=== PATIENT | male | born 1955 | race Caucasian/White ===

== ENCOUNTER 2018-12-11 12:33 | Outpatient (CLI) | payer OTHER ==
[~2018-12-11 12:33] MED LIST: LORA0.5T PO; LORA1TAB PO; SERT100T32 PO; SIMV10TA PO; VERA120T8 PO; VERA240T10 PO
[2018-12-11] MEDS ORDERED: GADOBUTROL 10 MMOL/10 ML PFS ONE (14:20)
== END 2018-12-11 23:59 | disposition home or self-care (01) ==
LOC: CFH 12:33
PROVIDERS: ATTEND Family Medicine
DX: M47.812 Spondylosis without myelopathy or radiculopathy, cervical region (principal); H93.12 Tinnitus, left ear; R51 Headache
CPT/HCPCS: 70553; 72141; A9585

== ENCOUNTER → 2020-07-12 | Outpatient (CLI) | payer OTHER ==
[~2020-07-12] MED LIST changes: +REGADENOSON 0.4 MG/5 ML SYRINGE ONE
== END | disposition home or self-care (01) ==
LOC: CFH 08:32
PROVIDERS: ATTEND Registered Nurse
DX: I25.89 Other forms of chronic ischemic heart disease (principal); I65.23 Occlusion and stenosis of bilateral carotid arteries; E78.5 Hyperlipidemia, unspecified; R73.03 Prediabetes; R94.31 Abnormal electrocardiogram [ECG] [EKG]; I10 Essential (primary) hypertension; I44.7 Left bundle-branch block, unspecified
CPT/HCPCS: 78452; 93017; 93880; A9502; J2785

== ENCOUNTER → 2020-07-20 | Outpatient (CLI) | payer OTHER ==
[~2020-07-20] MED LIST changes: +AMLO-150 PO; +ASCO500C2 PO; +CALC-171 PO; +EZET10TA70 PO; +HYDR200T72 PO; +HYDR25TA6 PO; +LISI5TAB7 PO; +MULT-297 PO; +NITR0.4T28 SL; +PREG150C PO; -REGADENOSON 0.4 MG/5 ML SYRINGE ONE; +SERT50TA28 PO; +UBID50TA3 PO
== END | disposition home or self-care (01) ==
LOC: CVU 08:49
PROVIDERS: ATTEND Physician Assistant Medical
DX: I08.0 Rheumatic disorders of both mitral and aortic valves (principal); I10 Essential (primary) hypertension; I44.7 Left bundle-branch block, unspecified
CPT/HCPCS: 93306; 93356

== ENCOUNTER 2020-07-21 16:20 | Inpatient (IN) | payer OTHER ==
[~2020-07-21] VITALS: Ht 177.8 cm; Wt 100.9 kg
[~2020-07-21 16:20] MED LIST changes: -AMLO-150 PO; -ASCO500C2 PO; -CALC-171 PO; -EZET10TA70 PO; -HYDR200T72 PO; -HYDR25TA6 PO; -LISI5TAB7 PO; -MULT-297 PO; -NITR0.4T28 SL; -PREG150C PO; -SERT50TA28 PO; -UBID50TA3 PO
[2020-07-21] MEDS ORDERED: HYDR200T72 PO (17:00)
[2020-07-21] MEDS ORDERED: ASCO500C2 PO (17:00)
[2020-07-21] MEDS ORDERED: LISI5TAB7 PO (17:00)
[2020-07-21] MEDS ORDERED: MULT-297 PO (17:00)
[2020-07-21] MEDS ORDERED: UBID50TA3 PO (17:00)
[2020-07-21] MEDS ORDERED: NITR0.4T28 SL (17:00)
[2020-07-21] MEDS ORDERED: AMLO-150 PO (17:00)
[2020-07-21] MEDS ORDERED: EZET10TA70 PO (17:00)
[2020-07-21] MEDS ORDERED: PREG150C PO (17:00)
[2020-07-21] MEDS ORDERED: CALC-171 PO (17:00)
[2020-07-21] MEDS ORDERED: HYDR25TA6 PO (17:00)
[2020-07-21] MEDS ORDERED: SODIUM CHLORIDE FLUSH 10ML SYR IVF ONE (17:00)
[2020-07-21] MEDS ORDERED: SERT50TA28 PO (17:00)
[2020-07-21] MEDS ORDERED: HEPARIN 25,000 UNITS/250ML PMX 250 ML ONE (17:03)
[2020-07-21] MEDS ORDERED: HEPARIN 5,000 UNITS/ML, 1ML ONE (17:03)
[2020-07-21 17:04] LABS: BASOPHILS % (AUTO) 1 % (0-1); EOSINOPHILS % (AUTO) 1 % (1-7); LYMPHOCYTES % (AUTO) 24 % (22-44); MEAN CORPUSCULAR HGB CONC 34.2 g/dL (33.2-36.2); MEAN PLATELET VOLUME 7.6 fL (7.4-10.4); MONOCYTES % (AUTO) 8 % (2-9); NEUTROPHILS % (AUTO) 66 % (42-75); PLATELET COUNT 260 x10^3/uL (130-400); RED BLOOD COUNT 5.25 x10^6/uL (4.38-5.82); RED CELL DISTRIBUTION WIDTH 14.1 % (9.4-14.8)
--- NOTE | 2020-07-21 17:05 | NUR ---
PT UPRIGHT ON GURNEY AWAKE & COMFORTABLE, RESPONDS APPROP TO STAFF, NAD, COMFORT MEASURES PROVIDED, AT BS, CALL LIGHT WITHIN REACH.
[2020-07-21 17:08] LABS: PROTHROMBIN TIME 10.6 Seconds (9.6-11.5)
[2020-07-21 17:10] LABS: ALANINE AMINOTRANSFERASE 38 U/L (12-78); ALBUMIN 4.7 g/dL (3.4-5.0); ANION GAP 8 mmol/L (5-15); CALCIUM 9.4 mg/dL (8.5-10.1); CHLORIDE 104 mmol/L (98-107)
[2020-07-21 17:14] LABS: ALKALINE PHOSPHATASE 63 U/L (45-117); BILIRUBIN,TOTAL 0.4 mg/dL (0.2-1.0); TOTAL PROTEIN 7.9 g/dL (6.4-8.2); TROPONIN I < 0.015 ng/mL (0.000-0.045)
[2020-07-21 17:16] LABS: MD NO
[2020-07-21] MEDS ORDERED: HEPARIN 25,000 UNITS/250ML PMX 250 ML IV PRN (17:30)
[2020-07-21] MEDS ORDERED: HEPARIN 5,000 UNITS/ML, 1ML IV ONE (17:30)
[2020-07-21] MEDS ORDERED: morphine SULFATE 10 MG/ML, 1ML IVPush PRN (18:00)
[2020-07-21] MEDS ORDERED: NITROGLYCERIN SINGLE TAB 0.4 MG SL PRN (18:00)
[2020-07-21] MEDS ORDERED: BISACODYL 10 MG SUPP PR PRN (18:00)
[2020-07-21] MEDS ORDERED: POLYETHYLENE GLYCOL 17 GM PACKET PO PRN (18:00)
[2020-07-21] MEDS ORDERED: ONDANSETRON ODT 4 MG PO PRN (18:00)
[2020-07-21] MEDS ORDERED: LORazepam 0.5MG TABLET PO PRN (18:00)
--- NOTE | 2020-07-21 18:05 | NUR ---
Pt to be admitted to [facility], room 511-1. Report called to Bridgett.
[2020-07-21 18:31] VITALS: BP 136/83
[2020-07-21] MEDS ORDERED: TEMAZEPAM 15 MG CAPSULE PO PRN (21:00)
[2020-07-21 21:07] VITALS: BP 136/84
[2020-07-21] MEDS: SODIUM CHLORIDE FLUSH 10ML SYR IVF SCH (21:16)
[2020-07-21] MEDS: PREGABALIN 150 MG CAPSULE PO SCH (21:16)
[2020-07-21] MEDS: ACETAMINOPHEN 325 MG TABLET PO PRN (21:21)
[2020-07-22 00:43] VITALS: BP 129/76
[2020-07-22] MEDS: HEPARIN 5,000 UNITS/ML, 1ML IV PRN ×2 (00:51→09:22)
[2020-07-22 05:23] LABS: BASOPHILS % (AUTO) 1 % (0-1); EOSINOPHILS % (AUTO) 2 % (1-7); LYMPHOCYTES % (AUTO) 38 % (22-44); MEAN CORPUSCULAR HGB CONC 34.2 g/dL (33.2-36.2); MEAN PLATELET VOLUME 7.6 fL (7.4-10.4); MONOCYTES % (AUTO) 8 % (2-9); NEUTROPHILS % (AUTO) 52 % (42-75); PLATELET COUNT 229 x10^3/uL (130-400); RED BLOOD COUNT 5.01 x10^6/uL (4.38-5.82); RED CELL DISTRIBUTION WIDTH 13.9 % (9.4-14.8)
[2020-07-22 05:31] LABS: MD NO
[2020-07-22 05:36] LABS: ANION GAP 9 mmol/L (5-15); CALCIUM 9.2 mg/dL (8.5-10.1); CHLORIDE 104 mmol/L (98-107)
[2020-07-22 05:37] LABS: CREATININE 0.91 mg/dL (0.7-1.3)
[2020-07-22] MEDS ORDERED: ASPIRIN 81 MG TABLET EC PO SCH (06:00)
[2020-07-22 07:55] VITALS: BP 131/78
[2020-07-22] MEDS ORDERED: POTASSIUM CHLORIDE 20 MEQ TAB.ER.PRT PO ONE (08:30)
[2020-07-22] MEDS ORDERED: ASCORBIC ACID 500 MG TABLET PO SCH (09:00)
[2020-07-22] MEDS ORDERED: EZETIMIBE 10 MG TABLET PO SCH (09:00)
[2020-07-22] MEDS ORDERED: SERTRALINE 50MG TABLET PO SCH (09:00)
[2020-07-22] MEDS ORDERED: UBIDECARENONE PO SCH (09:00)
[2020-07-22] MEDS ORDERED: LISINOPRIL 40 MG TABLET PO SCH (09:00)
[2020-07-22] MEDS ORDERED: SENNA/DOCUSATE TABLET PO SCH (09:00)
[2020-07-22] MEDS ORDERED: HYDROCHLOROTHIAZIDE 25 MG TABLET PO SCH (09:00)
[2020-07-22] MEDS ORDERED: HYDROXYCHLOROQUINE 200 MG TABLET PO SCH ×2 (09:00→10:00)
[2020-07-22] MEDS ORDERED: MULTIVITAMINS/MINERALS TABLET PO SCH (09:00)
[2020-07-22] MEDS ORDERED: AMLODIPINE 5 MG TABLET PO SCH (09:00)
[2020-07-22] MEDS ORDERED: CALCIUM/VITAMIN D3 250-125 TABLET PO SCH (09:00)
[2020-07-22] MEDS: PREGABALIN 150 MG CAPSULE PO SCH (09:31)
[2020-07-22] MEDS: SODIUM CHLORIDE FLUSH 10ML SYR IVF SCH (09:32)
[2020-07-22] MEDS: ACETAMINOPHEN 325 MG TABLET PO PRN ×2 (10:32→16:58)
[2020-07-22] MEDS ORDERED: SODIUM CHLORIDE 0.9% 1,000 ML IV SCH (11:00)
[2020-07-22 12:22] VITALS: BP 147/82
[2020-07-22] MEDS ORDERED: FENTANYL PF 100 MCG/2ML ONE (13:06)
[2020-07-22] MEDS ORDERED: TICAGRELOR 90 MG TABLET ONE (13:06)
[2020-07-22] MEDS ORDERED: MIDAZOLAM 1 MG/ML, 5ML ONE (13:06)
[2020-07-22] MEDS ORDERED: VERAPAMIL 2.5 MG/ML, 2ML ONE (13:07)
[2020-07-22] MEDS ORDERED: BIVALIRUDIN 250 MG ONE (13:07)
[2020-07-22] MEDS ORDERED: LIDOCAINE 2%, 20ML ONE (13:07)
[2020-07-22] MEDS ORDERED: HEPARIN 1,000 UNITS/ML, 10ML ONE (13:07)
[2020-07-22] MEDS ORDERED: CARV6.25 PO ×2 (15:59)
[2020-07-22] MEDS ORDERED: AMLO-150 PO (16:38)
== END 2020-07-22 17:36 | disposition home or self-care (01) | DRG 287 ==
LOC: ED 17:22 → EDIP 17:23 → ED 17:43 → 5SO 18:01
PROVIDERS: ADMIT Internal Medicine; ATTEND Internal Medicine
PROC: 4A023N7 Measurement of Cardiac Sampling and Pressure, Left Heart, Percutaneous Approach (ICD-10-PCS; principal; 2020-07-22)
PROC: B2111ZZ Fluoroscopy of Multiple Coronary Arteries using Low Osmolar Contrast (ICD-10-PCS; 2020-07-22)
PROC: B2151ZZ Fluoroscopy of Left Heart using Low Osmolar Contrast (ICD-10-PCS; 2020-07-22)
DX: I25.110 Atherosclerotic heart disease of native coronary artery with unstable angina pectoris (principal); D84.9 Immunodeficiency, unspecified; I50.42 Chronic combined systolic (congestive) and diastolic (congestive) heart failure; E11.9 Type 2 diabetes mellitus without complications; E78.2 Mixed hyperlipidemia; F12.90 Cannabis use, unspecified, uncomplicated; H81.09 Meniere's disease, unspecified ear; H91.90 Unspecified hearing loss, unspecified ear; I11.0 Hypertensive heart disease with heart failure; I44.7 Left bundle-branch block, unspecified; M32.9 Systemic lupus erythematosus, unspecified; M79.7 Fibromyalgia; Z82.0 Family history of epilepsy and other diseases of the nervous system; Z82.49 Family history of ischemic heart disease and other diseases of the circulatory system; Z85.46 Personal history of malignant neoplasm of prostate; Z87.891 Personal history of nicotine dependence; Z90.79 Acquired absence of other genital organ(s); Z90.49 Acquired absence of other specified parts of digestive tract; Z90.89 Acquired absence of other organs; Z88.8 Allergy status to other drugs, medicaments and biological substances; Z91.040 Latex allergy status; Z20.822 Contact with and (suspected) exposure to COVID-19; Z79.84 Long term (current) use of oral hypoglycemic drugs
CPT/HCPCS: 36415; 93458; 99285; J3490; 71045; 80048; 80053; 84484; 85025; 85520; 85610; 87635; 93005; 99156; C1769; C1894; G0378; J0583; J1644; J2250; J3010; J7030; Q9967